=== PATIENT | female | born 1990 | race Caucasian/White ===

== ENCOUNTER 2020-10-07 11:27 | Outpatient (REF) | payer MEDICAID, SELFPAY | END 2020-10-07 11:28 | disposition home or self-care (01) | LOC: HO.LAB 11:27 | PROVIDERS: Visit Provider Internal Medicine | DX: Z20.822 Contact with and (suspected) exposure to COVID-19 (principal) | CPT/HCPCS: 36415; C9803; U0003; U0005 ==

== ENCOUNTER 2020-10-10 16:47 | Emergency (ER) | payer MEDICAID, SELFPAY ==
--- NOTE | ~2020-10-10 | XR_ITS ---
EXAMINATION: XR CHEST CLINICAL INFORMATION: Covid positive. Evaluate for pneumonia. COMPARISON: None TECHNIQUE: Frontal view of the chest was obtained. FINDINGS: No significant abnormality is noted involving the heart, lungs, mediastinum, bony thorax or soft tissues. XR/XR chest 1V IMPRESSION: Unremarkable examination. No evidence of pneumonia.
[2020-10-10 17:08] VITALS: BP 144/95; PULSE 110; RESP 18; TEMP 37.6; O2SAT 99; BMI 27.8
[2020-10-10 17:46] LABS: COVID-19 Test Positive (Negative)
[2020-10-10 19:03] VITALS: BP 142/102; PULSE 88; RESP 18; TEMP 36.8; O2SAT 100
--- NOTE | 2020-10-10 19:17 | ED_ITS ---
HPI - URI/Sore Throat General Chief Complaint: Upper Respiratory Symptoms Stated Complaint: Covid symptoms Time Seen by Provider: 10/10/20 19:04 Source: patient Mode of arrival: ambulatory Limitations: no limitations History of Present Illness HPI Narrative: 30-year-old female here with complaints of chills, cough, headache, chest wall pain x4 days. Aunt at home is COVID positive 5 days ago. No shortness of breath, fevers, chills, leg swelling or pain Related Data Previous Rx's Medication Instructions Recorded benzonatate [Tessalon Perles] 100 mg PO TID PRN #10 cap 10/10/20 ibuprofen 600 mg PO Q8H PRN #20 tab 10/10/20 Allergies Allergy/AdvReac Type Severity Reaction Status Date / Time No Known Allergies Allergy Verified 10/10/20 19:15 Review of Systems Review of Systems: Yes all other systems are reviewed and are negative Constitutional: Constitutional: Reports no additional constitutional complaints, Reports body ache(s), Denies chills, Denies fever(s), Reports headache(s) and Denies weakness Eyes: Eyes: Reports no additional eye complaints and Denies change in vision ENT: Reports system reviewed and no additional complaints, except as documented, Denies dizziness, Reports headache(s), Denies nasal congestion, Denies nasal discharge and Denies neck pain Cardiovascular: Cardiovascular: Reports no additional cardiovascular complaints, Reports chest pain, Denies leg edema and Denies dyspnea Respiratory: Respiratory: Reports no additional respiratory complaints, Reports cough and Denies dyspnea Gastrointestinal: Gastrointestinal: Reports no additional gastrointestinal complaints, Denies abdominal pain, Denies diarrhea, Denies nausea and Denies vomiting Genitourinary: Genitourinary: Reports no additional female genitourinary complaints and Denies urinary incontinence Musculoskeletal: Musculoskeletal: Reports no additional musculoskeletal complaints, Denies back pain, Denies arthralgias, Denies joint swelling, Denies neck pain, Denies numbness and Denies tingling Integumentary/Breasts: Skin/Breast: Reports system reviewed and no additional complaints, except as docu and Denies rash Neurologic: Reports system reviewed and no additional complaints, except as documented, Denies Abnormal speech present, Denies dizziness, Reports headache(s), Denies numbness, Denies tingling and Denies weakness FORMERLY [facility], [facility] Past Medical History Attestation statement: The following information was validated with the patient. Source: old records reviewed and nursing notes reviewed Social History Social History Advance Directives: No Advance Directives Information Provided: No Physical Exam Vital Signs: Vital Signs: Last Vital Signs Temp 98.3 F 10/10/20 19:03 Pulse 88 10/10/20 19:03 Resp 18 10/10/20 19:03 BP 142/102 H 10/10/20 19:03 Pulse Ox 100 10/10/20 19:03 Body Mass Index 27.8 Const: General: cooperative, healthy appearing, comfortable and no acute dist ress Orientation/consciousness: patient oriented x3 Limitations: no limitations HENMT: Head: Yes normal to inspection Ears: hearing grossly normal bilaterally General nose exam: Normal external nose present Face and sinus: Yes normal facial exam Mouth: Normal oral and palatal mucosa present Throat: Yes posterior oropharynx normal Eyes: General: appearance normal, both eyes and all related structures Pupils: Equal, round and reactive pupils present Neck: Neck: Yes normal visual inspection Chest: Chest palpation & inspection: normal inspection of the chest Resp: Effort & Inspection: normal respiratory effort Auscultation: clear to auscultation bilaterally Cardio: Rate: regular rate Rhythm: regular rhythm Peripheral pulses: Peripheral pulses 2+ throughout GI: Inspection: Yes normal to inspection Palpation (GI): Soft to palpation and nontender Auscultation: normal bowel sounds Back/Spine/Pelvis: Thoracic/Lumbar Spine: thoracic and lumbar spine normal to inspection Skin: General skin exam: no rashes or lesions noted Neuro: General: patient oriented x3, no focal motor deficits and normal sensation to monofilament Cranial nerves: Yes Equal, round and reactive pupils present Cognition (Neuro): normal cognition Speech: No Abnormal speech present Gait exam (Neuro): Normal gait present Motor exam (neuro): 5/5 motor strength present throughout Extrem: General: Yes normal to inspection Course Course Course Narrative: Flu-like symptoms x4 days with COVID exposure at home. Will check COVID and chest x-ray 1950-CXR negative. COVID +. Well appearing, stable saturations, lung sounds are clear. Reviewed worrisome signs and symptoms and when to return to the emergency department. Comfortable discharge home. MDM - URI/Sore Throat Medical Records Attestation: I reviewed the patient's medical records. Lab Data Attestation: I reviewed the patient's lab results. Labs: Lab Results 10/10/20 Range/Units 17:06 COVID-19 (ROSALIE) Positive A (Negative) COVID-19 Clin Com See Note Imaging Data Chest x-ray: Attestation: I personally reviewed and interpreted this imaging study as follows: Radiologist's impression: EXAMINATION: XR CHEST CLINICAL INFORMATION: Covid positive. Evaluate for pneumonia. COMPARISON: None TECHNIQUE: Frontal view of the chest was obtained. FINDINGS: No significant abnormality is noted involving the heart, lungs, mediastinum, bony thorax or soft tissues. XR/XR chest 1V IMPRESSION: Unremarkable examination. No evidence of pneumonia. Discharge Plan Discharge Clinical Impression: COVID-19 Patient Disposition: Home, Self-Care Instructions: COVID-19 (Coronavirus Disease 2019) (ED) Additional Instructions: Your chest x-ray shows no sign of pneumonia Your COVID test is positive. Per CDC requirements you must quarantine for 10 days and her symptoms must be resolved for 24 hours before leaving her quarantine Take Motrin or Tylenol as needed for pain or fever Increase fluids, rest Return here for shortness of breath, chest pain, fever which does not respond to Motrin Tylenol Prescriptions: New benzonatate [Tessalon Perles] 100 mg capsule 100 mg PO TID PRN (Reason: cough) Qty: 10 RF: 0 ibuprofen 600 mg tablet 600 mg PO Q8H PRN (Reason: fever or pain) Qty: 20 RF: 0 Referrals: Physician,None [Primary Care Provider] - 2 days Interventions: ED Discharge Assessment Last Done: 10/10/20 20:07 Discharge Date/Time: 10/10/20 20:07 Print Language: Nicaraguan
== END 2020-10-10 20:07 | disposition home or self-care (01) ==
PROVIDERS: Emergency Provider Internal Medicine
DX: U07.1 COVID-19 (principal)
CPT/HCPCS: 36415; 71045; 87635; 99283

== ENCOUNTER 2021-04-29 15:46 | Outpatient (REF) | payer MEDICAID, SELFPAY | END 2021-04-29 15:47 | disposition home or self-care (01) | LOC: HO.LAB 15:46 | PROVIDERS: PCP Family Medicine; Visit Provider Internal Medicine | DX: Z20.822 Contact with and (suspected) exposure to COVID-19 (principal) | CPT/HCPCS: C9803; U0003; U0005 ==

== ENCOUNTER 2021-06-24 10:33 | Emergency (ER) | payer MEDICAID, SELFPAY ==
[2021-06-24 10:47] VITALS: BP 139/87; PULSE 81; RESP 18; TEMP 36.6; O2SAT 100; BMI 27.8
--- NOTE | 2021-06-24 11:10 | ED_ITS ---
HPI - URI/Sore Throat General Chief Complaint: Upper Respiratory Symptoms Stated Complaint: Cough/sore throat Time Seen by Provider: 06/24/21 11:09 Source: patient Mode of arrival: ambulatory Limitations: no limitations History of Present Illness HPI Narrative: 31-year-old female with history of COVID-19 back in September of 2020 presents to the ER with 3 days of dry cough and sore throat. She reports her biggest complaint is the sore throat. She states it hurts to eat or drink but she has been tolerating plenty of oral fluids. She denies any change in her voice or difficulty handling secretions. She has had no fever or chills. No known sick contacts. She has no shortness of breath or chest pain. MD elicited complaint: cough and sore throat Onset (ago): day(s) (3) Consistency: constant Description of mucous: clear Able to tolerate fluids by mouth: Yes Exacerbating factors: swallowing Relieving factors: nothing Associated symptoms: nasal congestion, sore throat and cough Treatments prior to arrival: none Related Data Previous Rx's Medication Instructions Recorded benzonatate 100 mg capsule 100 mg PO TID PRN #10 cap 10/10/20 (Tessalon Steven) ibuprofen 600 mg tablet 600 mg PO Q8H PRN #20 tab 10/10/20 amoxicillin 250 mg/5 mL oral 500 mg (10 mL) PO BID 10 Days #200 06/24/21 suspension ml Allergies Allergy/AdvReac Type Severity Reaction Status Date / Time No Known Allergies Allergy Verified 10/10/20 19:15 Review of Systems Review of Systems: Constitutional: No Fever, No Chills ENT/Mouth: + sore throat, No Rhinorrhea, + Swallowing Difficulty Cardiovascular: No Chest Pain, No SOB, No Orthopnea, No Edema Respiratory: +Cough, No Sputum, No Wheezing, No dyspnea Gastrointestinal: No Nausea, No Vomiting, No abdominal Pain Musculoskeletal: No joint pain, No Myalgias Skin: No Skin Lesions, No rash Neuro: No Weakness, No Numbness, No Dizziness, + Headache Psych: No Anxiety/Panic, No Depression Heme/Lymph: No Bruising, No Lymphadenopathy PMFSH Past Medical History Medical History (Updated 06/24/21 @ 12:20 by RONALD Conde) No known health problems Social History Social History Advance Directives: No Advance Directives Information Provided: Yes Patient : No Physical Exam Vital Signs: Vital Signs: Last Vital Signs Temp 98.6 F 06/24/21 11:41 Pulse 104 H 06/24/21 11:41 Resp 19 06/24/21 11:41 BP 133/87 06/24/21 11:41 Pulse Ox 100 06/24/21 11:42 BMI result Body Mass Index 27.8 Appearance: Alert. Oriented X3. No acute distress. Eyes: Pupils equal, round and reactive to light. ENT: Pharynx with moist mucus membranes. Tonsils are erythematous and enlarged bilaterally without exudate. Uvula midline. Handling secretions normally. Bilateral tympanic membranes are normal in appearance. Neck: Normal inspection. Neck supple. Submandibular lymphadenopathy noted. CVS: Normal heart rate and rhythm. Pulses normal. Respiratory: No respiratory distress. Breath sounds normal. Skin: Skin warm and dry. Normal skin color. Normal skin turgor. No rashes. Extremities: Normal inspection, normal range of motion. Neuro: Oriented X 3. Grossly normal, nonfocal Course Course Course Narrative: 31-year-old female presenting with sore throat and dry cough for the last 3 days. She had COVID back in September. On exam her tonsils are significantly swollen and erythematous. Will empirically treat for strep pharyngitis. There is no evidence of peritonsillar abscess or retropharyngeal abscess. Viral PCR has been sent although less likely. Reevaluation(s) Reevaluation #1: Viral PCR is negative. She was given Toradol for throat pain. Will prescribe oral amoxicillin liquid given her throat pain and reported difficulty swallowing large pills. She is stable for discharge home with supportive care and encourage follow-up with her primary care doctor. Patient expressed understanding and was given a warning signs to come back to the ER. MDM - URI/Sore Throat Lab Data Labs: Lab Results 06/24/21 06/24/21 Range/Units 10:57 11:01 Influenza Type A (PCR) NEGATIVE (Negative) Influenza Type B (PCR) NEGATIVE (Negative) RSV RNA Qual (PCR) NEGATIVE (Negative) SARS-CoV-2 RNA (RT-PCR) NEGATIVE (Negative) S. pyogenes GrpA AMARA Negative (Negative) Critical Care Time Critical Care Time Critical Care Time: No Discharge Plan Discharge Clinical Impression: Pharyngitis Qualifiers: Pharyngitis/tonsillitis etiology: unspecified etiology Qualified Code(s): J02.9 - Acute pharyngitis, unspecified Patient Disposition: Home, Self-Care Instructions: Pharyngitis (ED) Additional Instructions: You were negative for COVID-19, Influenza and RSV. Take the prescribed antibiotic as directed, complete the entire course. Recommend warm saltwater gargles over times per day to help with her sore throat. Recommend [id number] Chloraseptic spray or Cepacol lozenges to help numb the back your throat and help with pain. Take Motrin and/or Tylenol as needed for pain. Follow up with your doctor as needed. If you develop new or worsening symptoms call 911 or come back to the ER for further evaluation. Result? negativo para COVID-19, Influenza y RSV. Ingalls el antibi?katie recetado seg?n las indicaciones, complete todo el ciclo. Recomiende hacer g?rgaras con agua salada tibia varias veces al d?a para ayudar con el dolor de garganta. Recomiende el aerosol cloras?ptico de venta sophie o las pastillas de Cepacol para ayudar a adormecer la parte posterior de la garganta y aliviar el dolor. Ingalls Motrin y / o Tylenol seg?n sea necesario para el dolor. Thi un seguimiento con edwards m?dico seg?n sea necesario. Si presenta s?ntomas nuevos o que empeoran, llame al 911 o regrese a la linh de emergencias para ravinder evaluaci?n adicional. Prescriptions: New amoxicillin 250 mg/5 mL suspension for reconstitution 500 mg PO BID 10 Days Qty: 200 RF: 0 No Action benzonatate [Tessalon Perles] 100 mg capsule 100 mg PO TID PRN (Reason: cough) Qty: 10 RF: 0 ibuprofen 600 mg tablet 600 mg PO Q8H PRN (Reason: fever or pain) Qty: 20 RF: 0
[2021-06-24 11:30] LABS: Strep A Nucleic Acid Negative (Negative)
[2021-06-24 11:41] VITALS: BP 133/87; PULSE 104; RESP 19; TEMP 37; O2SAT 100
[2021-06-24 11:42] VITALS: O2SAT 100
[2021-06-24 11:51] LABS: Influenza A PCR NEGATIVE (Negative); Influenza B PCR NEGATIVE (Negative); Resp Syncy Virus RNA Qual PCR NEGATIVE (Negative); SARS COV2 PCR INHOUSE NEGATIVE (Negative)
[2021-06-24] MEDS: Ketorolac Tromethamine 30 MG/ML VIAL IM (11:51)
[2021-06-24] MEDS: Lidocaine HCl Viscous 2 % 15 ML SOLUTION MUCOUS MEM (11:51)
[2021-06-24 12:25] VITALS: RESP 18
== END 2021-06-24 12:27 | disposition home or self-care (01) ==
PROVIDERS: Physician Assistant Medical; Emergency Provider Emergency Medicine Emergency Medical Services; PCP Family Medicine
DX: J02.9 Acute pharyngitis, unspecified (principal); R05.9 Cough, unspecified; Z20.822 Contact with and (suspected) exposure to COVID-19; Z79.899 Other long term (current) drug therapy
CPT/HCPCS: 0241U; 36415; 87651; 96372; 99284; J1885

== ENCOUNTER 2021-07-03 12:46 | Outpatient (REF) | payer MEDICAID, SELFPAY | END 2021-07-03 12:47 | disposition home or self-care (01) | LOC: HO.HOSX 12:46 | PROVIDERS: Visit Provider Physician Assistant | DX: Z13.89 Encounter for screening for other disorder (principal) ==

== ENCOUNTER 2021-07-16 09:19 | Outpatient (REF) | payer MEDICAID, SELFPAY ==
--- NOTE | 2021-07-16 09:23 | EMG_ITS ---
This is a 31-year-old woman with a 5-month history of bilateral upper extremity pain and numbness. PHYSICAL EXAMINATION: NEUROLOGICAL: She is alert and oriented with normal intellectual functions. Cranial nerves II through XII are normal. No Tinel or Phalen sign. IMPRESSION: Carpal tunnel syndrome. Nerve conduction EMG study: Early carpal tunnel syndrome bilaterally, slightly worse on the right. Normal EMG of the left C5-T1 innervated muscles. MD KALIA Ocasio/JOSH / [id number]
== END 2021-07-16 09:20 | disposition home or self-care (01) ==
LOC: HO.NEURO 09:19
PROVIDERS: Visit Provider Family Medicine
DX: M79.641 Pain in right hand (principal)
CPT/HCPCS: 95885; 95913

== ENCOUNTER 2021-10-11 16:53 | Emergency (ER) | payer MEDICAID, SELFPAY ==
[2021-10-11 17:01] VITALS: BP 172/113; PULSE 90; RESP 16; TEMP 36.3; O2SAT 100; BMI 28.7
--- NOTE | 2021-10-11 17:58 | ED.GENADULT ---
HPI - General Adult General Chief complaint: General Medical Stated complaint: throat pain/swollen Time Seen by Provider: 10/11/21 17:18 Source: patient Mode of arrival: ambulatory Limitations: no limitations History of Present Illness HPI narrative: Patient status post tonsillectomy 5 days ago on oxycodone and ibuprofen complaining of increased pain in the throat unable to drink or swallow no fever no chills Related Data Previous Rx's Medication Instructions Recorded benzonatate 100 mg capsule 100 mg PO TID PRN #10 cap 10/10/20 (Tessalon Perles) ibuprofen 600 mg tablet 600 mg PO Q8H PRN #20 tab 10/10/20 amoxicillin 250 mg/5 mL oral 500 mg (10 mL) PO BID 10 Days #200 06/24/21 suspension ml lidocaine HCl 2 % mucosal solution 1 appl MUCOUS MEMBRANE QID PRN 10/11/21 (Lidocaine Viscous) #100 ml Allergies Allergy/AdvReac Type Severity Reaction Status Date / Time No Known Allergies Allergy Verified 10/11/21 17:01 Review of Systems Review of Systems: Yes all other systems are reviewed and are negative PMFSH Past Medical History Medical History No known health problems No known health problems Social History Social History Advance Directives: No Advance Directives Information Provided: No Physical Exam ED Vital Signs: Vital Signs - 24 hr 10/11/21 17:01 Temperature 97.4 F Pulse Rate 90 Respiratory Rate 16 Blood Pressure 172/113 H Pulse Oximetry 100 BMI result Body Mass Index 28.7 Appearance: Alert. Oriented X3. in mild distress. ENT: Post tonsillectomy changes Oral Mucosa moist Neck: Normal inspection. Neck supple. CVS: Normal heart rate and rhythm. Pulses normal. Respiratory: No respiratory distress. Equal air entry bilateral, Abdomen: Soft and nontender. Bowel sounds are present, Skin: Skin warm and dry. Normal skin color. Normal skin turgor. Extremities: No lower extremity edema. No calf tenderness Neuro: Oriented X 3. Discharge Plan Discharge Clinical Impression: Pain in throat Patient Disposition: Home, Self-Care Instructions: Adenoidectomy (DC) Additional Instructions: Swish and spit lidocaine viscous every 6 hours as needed for pain relief Prescriptions: New lidocaine HCl [Lidocaine Viscous] 2 % solution 1 appl mucous membrane QID PRN (Reason: pain) Qty: 100 0RF Rx Instructions: Use 5 mL every 6 hours as needed for throat pain No Action benzonatate [Tessalon Perles] 100 mg capsule 100 mg PO TID PRN (Reason: cough) Qty: 10 0RF ibuprofen 600 mg tablet 600 mg PO Q8H PRN (Reason: fever or pain) Qty: 20 0RF amoxicillin 250 mg/5 mL suspension for reconstitution 500 mg PO BID 10 Days Qty: 200 0RF Interventions: ED Discharge Assessment Last Done: 10/11/21 19:34 Discharge Date/Time: 10/11/21 19:35
[2021-10-11] MEDS: Lidocaine HCl Viscous 2 % 15 ML SOLUTION MUCOUS MEM (18:37)
== END 2021-10-11 19:35 | disposition home or self-care (01) ==
PROVIDERS: Emergency Provider Internal Medicine; PCP Family Medicine
DX: J02.9 Acute pharyngitis, unspecified (principal)
CPT/HCPCS: 99283

== ENCOUNTER 2022-06-18 20:22 | Emergency (ER) | payer MEDICAID, SELFPAY ==
--- NOTE | 2022-06-18 | ECG_ITS ---
Test Reason : ABD MOE CHEST PAIN Blood Pressure : / mmHG Vent. Rate : 077 BPM Atrial Rate : 077 BPM P-R Int : 116 ms QRS Dur : 076 ms QT Int : 390 ms P-R-T Axes : 043 015 033 degrees QTc Int : 441 ms Normal sinus rhythm Normal ECG No previous ECGs available Referred By: Generic ED Physician Electronically Signed By:Dev Valencia
[2022-06-18 21:55] VITALS: BP 158/108; PULSE 79; RESP 20; TEMP 37.1; O2SAT 100; BMI 27.8
[2022-06-18 22:23] LABS: MANUAL DIFF FLAG NO
[2022-06-18 22:24] LABS: Basophils Absolute Auto 0.1 X10*3/uL (0.0-0.2); Basophils Percent Auto 0.4 % (0-2); Eosinophils Absolute Auto 0.2 X10*3/uL (0.0-0.4); Eosinophils Percent Auto 1.8 % (0-4); Hematocrit 40.8 % (37.0-47.0); Hemoglobin 13.2 g/dl (12.0-16.0); Imm Gran Abs Auto 0.07 X10*3/uL (0.00-0.03); Imm Gran Pct Auto 0.6 % (0.0-0.4); Lymphocytes Absolute Auto 3.4 X10*3/uL (1.2-4.9); Lymphocytes Percent Auto 27.8 % (20-40); Mean Corpuscular HGB Conc 32.4 g/dl (31.0-35.0); Mean Corpuscular Hemoglobin 26.6 pg (27.0-33.0); Mean Corpuscular Volume 82.3 fL (80.0-98.0); Mean Platelet Volume 8.8 fL (9.4-12.3); Monocytes Absolute Auto 0.8 X10*3/uL (0.1-1.2); Monocytes Percent Auto 6.8 % (2-11); Neutrophils Absolute Auto 7.6 x10*3/uL (2.0-8.3); Neutrophils Percent Auto 62.6 % (45-73); Platelet Count 352 X10*3/uL (160-400); Red Blood Count 4.96 X10*6/uL (4.20-5.50); Red Cell Distribution Width 13.2 % (11.0-16.0); White Blood Count 12.2 X10*3/uL (4.8-10.8)
[2022-06-18 22:44] LABS: Alanine Aminotransferase 26 U/L (0-31); Albumin Level 4.6 g/dL (3.5-5.0); Alkaline Phosphatase 84 U/L (39-117); Anion Gap 18 (12-20); Aspartate Amino Transferase 27 U/L (5-31); Bilirubin Total 1.1 mg/dL (0.0-1.0); Blood Urea Nitrogen 11 mg/dL (9-16); Calcium 9.9 mg/dL (8.4-10.2); Carbon Dioxide 23 mmol/L (22-29); Chloride 105 mmol/L (96-108); Creatinine Clr Calc Pharmacy 98.6; Estimated Glomerular Filt Rate > 60; Glucose Random 108 mg/dL (60-115); Lipase 30 U/L (8-78); Potassium 4.1 mmol/L (3.3-5.1); Sodium 142 mmol/L (135-145)
[2022-06-18 22:45] LABS: Troponin-I High Sensitivity < 3.5 ng/L (<3.5-17.0)
--- NOTE | 2022-06-18 23:25 | ED.ABDPAIN ---
HPI - Abdominal Pain General Chief Complaint: Abdominal Pain Stated Complaint: abd pain,nausea Time Seen by Provider: 06/18/22 23:20 Source: patient Mode of arrival: ambulatory Limitations: no limitations History of Present Illness HPI narrative: Patient with History of hypertension not taking any medication for last 3 years was feeling okay otherwise earlier today around 19:00 noticed epigastric pain followed by 4 vomiting initial to vomiting were clear last vomiting had some dark-colored blood mixed vomitus patient now complaining of epigastric pain never had similar complaints in the past patient does not smoke does not take any NSAIDs. No history of ulcer no history of pancreatitis no alcohol use. No headache no kidney problems blood pressure on arrival was 158/108 repeat blood pressure 133/91 Related Data Previous Rx's Medication Instructions Recorded benzonatate 100 mg capsule 100 mg PO TID PRN cough #10 caps 10/10/20 (Tessalon Perles) ibuprofen 600 mg tablet 600 mg PO Q8H PRN fever or pain 10/10/20 #20 tabs amoxicillin 250 mg/5 mL oral 500 mg (10 mL) PO BID 10 days #200 06/24/21 suspension mL lidocaine HCl 2 % mucosal solution 1 appl mucous membrane QID PRN 10/11/21 (Lidocaine Viscous) pain #100 mL amlodipine 5 mg tablet 5 mg PO DAILY #30 tabs 06/19/22 pantoprazole 40 mg tablet,delayed 40 mg PO DAILY #30 tabs 06/19/22 release (Protonix) sucralfate 1 gram tablet 1 g PO TID #90 tabs 06/19/22 Allergies Allergy/AdvReac Type Severity Reaction Status Date / Time No Known Allergies Allergy Verified 06/18/22 21:57 Review of Systems Review of Systems Yes all other systems are reviewed and are negative PMFSH Past Medical History Medical History No known health problems No known health problems Social History Social History Advance Directives: No Advance Directives Information Provided: Yes Physical Exam ED Vital Signs: Vital Signs - 24 hr 06/18/22 21:55 06/18/22 23:28 06/19/22 00:35 Temperature 98.8 F 98.4 F 97.9 F Pulse Rate 79 85 81 Respiratory Rate 20 14 18 Blood Pressure 158/108 H 133/91 H 171/109 H Pulse Oximetry 100 100 100 Oxygen Delivery Method Room Air Room Air Room Air 06/19/22 02:37 Temperature 98.3 F Pulse Rate 74 Respiratory Rate 16 Blood Pressure 145/102 H Pulse Oximetry 99 Oxygen Delivery Method Room Air BMI result Body Mass Index 27.8 Appearance: Alert. Oriented X3. No acute distress. Eyes: PERRLA, No Nystagmus ENT: Pharynx normal. Oral Mucosa moist Neck: Normal inspection. Neck supple. CVS: Normal heart rate and rhythm. Pulses normal. Respiratory: No respiratory distress. Equal air entry bilateral, no wheezing/rales/rhonchi Abdomen: Soft tenderness in the epigastric area no rebound tenderness or guarding. Bowel sounds are present, no mass palpable, no CVA tenderness Skin: Skin warm and dry. Normal skin color. Normal skin turgor. Extremities: No lower extremity edema. No calf tenderness Neuro: Oriented X 3. Medications Administered Discontinued Medications Generic Name Dose Route Start Last Admin Trade Name Freq PRN Reason Stop Dose Admin Al Hydroxide/Mg Hydroxide 30 ml 06/18/22 23:38 06/19/22 00:10 Magnesium Hydrox/Alum Hydrox 30 Ml Oral.Susp PO 06/18/22 23:39 30 ml ONCE ONE Administration Amlodipine Besylate 5 mg 06/18/22 23:53 06/19/22 00:10 Amlodipine Besylate 5 Mg Tablet PO 06/18/22 23:54 5 mg ONCE ONE Administration Protocol Sodium Chloride 1,000 mls @ 999 mls/hr 06/18/22 23:40 06/19/22 01:45 Ns IV 06/19/22 00:40 Infused .Q1H1M ONE Infusion Lidocaine HCl 15 ml 06/18/22 23:40 06/19/22 00:11 Lidocaine Hcl Viscous 2 % 15 Ml Solution MUCOUS MEM 06/18/22 23:41 15 ml ONCE ONE Administration Omeprazole 40 mg 06/18/22 23:52 06/19/22 00:10 Omeprazole 40 Mg Capsule.Dr PO 06/18/22 23:53 40 mg ONCE ONE Administration Ondansetron HCl 4 mg 06/18/22 23:52 06/19/22 00:10 Ondansetron Odt 4 Mg Tab.Rapdis TRANSLINGU 06/18/22 23:53 4 mg ONCE ONE Administration MDM - Abdominal Pain MDM Narrative Medical decision making narrative: Clinically patient has gastritis likely the bleeding from the small ruptured blood vessel will treat her with PPI and Maalox incidental notice patient has hypertension which was diagnosed during and patient not compliant with the medication will start patient on amlodipine 5 mg at this time is no end organ damage finding from hypertension Differential Diagnosis Differential diagnosis: Likely abdominal pain and gastritis Lab Data Attestation: I reviewed the patient's lab results. Result diagrams: 06/18/22 22:18 06/18/22 22:18 Labs: Lab Results 06/18/22 06/18/22 06/18/22 Range/Units 22:18 22:18 22:18 WBC 12.2 H (4.8-10.8) X10*3/uL RBC 4.96 (4.20-5.50) X10*6/uL Hgb 13.2 (12.0-16.0) g/dl Hct 40.8 (37.0-47.0) % MCV 82.3 (80.0-98.0) fL MCH 26.6 L (27.0-33.0) pg MCHC 32.4 (31.0-35.0) g/dl RDW 13.2 (11.0-16.0) % Plt Count 352 (160-400) X10*3/uL MPV 8.8 L (9.4-12.3) fL Immature Gran % (Auto) 0.6 H (0.0-0.4) % Neut % (Auto) 62.6 (45-73) % Lymph % (Auto) 27.8 (20-40) % [place] % (Auto) 6.8 (2-11) % Eos % (Auto) 1.8 (0-4) % Baso % (Auto) 0.4 (0-2) % Lymph # (Auto) 3.4 (1.2-4.9) X10*3/uL [place] # (Auto) 0.8 (0.1-1.2) X10*3/uL Eos # (Auto) 0.2 (0.0-0.4) X10*3/uL Baso # (Auto) 0.1 (0.0-0.2) X10*3/uL Abs Immat Gran (auto) 0.07 H (0.00-0.03) X10*3/uL Absolute Neuts (auto) 7.6 (2.0-8.3) x10*3/uL Absolute Nucleated RBC 0.000 (0.0-0.012) X10*3/uL Nucleated RBC % (auto) 0.0 (0.0-0.2) /100WBC Sodium 142 (135-145) mmol/L Potassium 4.1 (3.3-5.1) mmol/L Chloride 105 (96-108) mmol/L Carbon Dioxide 23 (22-29) mmol/L Anion Gap 18 (12-20) BUN 11 (9-16) mg/dL Creatinine 0.76 (0.5-1.4) mg/dL Estim Creat Clear Calc 98.6 Estimated GFR > 60 Random Glucose 108 (60-115) mg/dL Calcium 9.9 (8.4-10.2) mg/dL Total Bilirubin 1.1 H (0.0-1.0) mg/dL AST 27 (5-31) U/L ALT 26 (0-31) U/L Alkaline Phosphatase 84 (39-117) U/L Troponin I High Sens < 3.5 (<3.5-17.0) ng/L Total Protein 8.0 (6.5-8.0) g/dL Albumin 4.6 (3.5-5.0) g/dL Lipase 30 (8-78) U/L Urine Color Urine Appearance Urine pH (5.0-9.0) Ur Specific [place] (1.005-1.025) Urine Protein (Neg-Trace) mg/dL Urine Glucose (UA) (Negative) mg/dL Urine Ketones (Negative) mg/dL Urine Blood (Negative) Urine Nitrite (Negative) Ur Leukocyte Esterase (Negative) Urine Test (NEGATIVE) 06/19/22 06/19/22 Range/Units 00:42 00:42 WBC (4.8-10.8) X10*3/uL RBC (4.20-5.50) X10*6/uL Hgb (12.0-16.0) g/dl Hct (37.0-47.0) % MCV (80.0-98.0) fL MCH (27.0-33.0) pg MCHC (31.0-35.0) g/dl RDW (11.0-16.0) % Plt Count (160-400) X10*3/uL MPV (9.4-12.3) fL Immature Gran % (Auto) (0.0-0.4) % Neut % (Auto) (45-73) % Lymph % (Auto) (20-40) % [place] % (Auto) (2-11) % Eos % (Auto) (0-4) % Baso % (Auto) (0-2) % Lymph # (Auto) (1.2-4.9) X10*3/uL [place] # (Auto) (0.1-1.2) X10*3/uL Eos # (Auto) (0.0-0.4) X10*3/uL Baso # (Auto) (0.0-0.2) X10*3/uL Abs Immat Gran (auto) (0.00-0.03) X10*3/uL Absolute Neuts (auto) (2.0-8.3) x10*3/uL Absolute Nucleated RBC (0.0-0.012) X10*3/uL Nucleated RBC % (auto) (0.0-0.2) /100WBC Sodium (135-145) mmol/L Potassium (3.3-5.1) mmol/L Chloride (96-108) mmol/L Carbon Dioxide (22-29) mmol/L Anion Gap (12-20) BUN (9-16) mg/dL Creatinine (0.5-1.4) mg/dL Estim Creat Clear Calc Estimated GFR Random Glucose (60-115) mg/dL Calcium (8.4-10.2) mg/dL Total Bilirubin (0.0-1.0) mg/dL AST (5-31) U/L ALT (0-31) U/L Alkaline Phosphatase (39-117) U/L Troponin I High Sens (<3.5-17.0) ng/L Total Protein (6.5-8.0) g/dL Albumin (3.5-5.0) g/dL Lipase (8-78) U/L Urine Color Yellow Urine Appearance Clear Urine pH 7.5 (5.0-9.0) Ur Specific [place] 1.015 (1.005-1.025) Urine Protein Negative (Neg-Trace) mg/dL Urine Glucose (UA) Negative (Negative) mg/dL Urine Ketones Negative (Negative) mg/dL Urine Blood Negative (Negative) Urine Nitrite Negative (Negative) Ur Leukocyte Esterase Negative (Negative) Urine Test NEGATIVE (NEGATIVE) Discharge Plan Discharge Clinical Impression: Acute gastritis, Hypertension Patient Disposition: Home, Self-Care Instructions: Gastritis (ED), Chronic Hypertension (ED) Additional Instructions: Drink plenty of fluids Take blood pressure medication daily as prescribed Take Protonix and sucralfate daily Avoid fried food Your normal blood pressure should be less than 130/85 follow with PCP Beber mucho l?quido [place] medicamentos para la presi?n arterial diariamente seg?n lo prescrito [place] Protonix y sucralfato diariamente [place]ma la comida frita [place] presi?n arterial normal debe ser inferior a 130/85. Siga con PCP. Prescriptions: New pantoprazole [Protonix] 40 mg tablet,delayed release (DR/EC) 40 mg PO DAILY Qty: 30 0RF sucralfate 1 gram tablet 1 g PO TID Qty: 90 0RF amlodipine 5 mg tablet 5 mg PO DAILY Qty: 30 3RF No Action benzonatate [Tessalon Perles] 100 mg capsule 100 mg PO TID PRN (Reason: cough) Qty: 10 0RF ibuprofen 600 mg tablet 600 mg PO Q8H PRN (Reason: fever or pain) Qty: 20 0RF amoxicillin 250 mg/5 mL suspension for reconstitution 500 mg PO BID 10 Days Qty: 200 0RF lidocaine HCl [Lidocaine Viscous] 2 % solution 1 appl mucous membrane QID PRN (Reason: pain) Qty: 100 0RF Rx Instructions: Use 5 mL every 6 hours as needed for throat pain Stand Alone Forms: Work/School Release Interventions: ED Discharge Assessment Last Done: 06/19/22 03:13 Discharge Date/Time: 06/19/22 03:17 Print Language: Wolof
[2022-06-18 23:28] VITALS: BP 133/91; PULSE 85; RESP 14; TEMP 36.9; O2SAT 100
[2022-06-19] MEDS: Ondansetron ODT 4 MG TAB.RAPDIS TRANSLINGU (00:10)
[2022-06-19] MEDS: Magnesium Hydrox/Alum Hydrox 30 ML ORAL.SUSP PO (00:10)
[2022-06-19] MEDS: amLODIPine Besylate 5 MG TABLET PO (00:10)
[2022-06-19] MEDS: Omeprazole 40 MG CAPSULE.DR PO (00:10)
[2022-06-19] MEDS: 0.9 % Sodium Chloride 1,000 ML 999 ML IV (00:11)
[2022-06-19] MEDS: Lidocaine HCl Viscous 2 % 15 ML SOLUTION MUCOUS MEM (00:11)
[2022-06-19 00:35] VITALS: BP 171/109; PULSE 81; RESP 18; TEMP 36.6; O2SAT 100
[2022-06-19 00:50] LABS: Appearance Urine Clear; Color Urine Yellow; Glucose Urine UA Negative (Negative); Leukocyte Esterase Urine Negative (Negative); Nitrite Urine Negative (Negative); PH 7.5 (5.0-9.0); Specific Gravity - Urine 1.015 (1.005-1.025); Urine Blood Negative (Negative); Urine Ketones Negative (Negative); Urine Protein Negative (Neg-Trace)
[2022-06-19 02:09] LABS: UPreg QC Valid YES; Urine Pregnancy NEGATIVE (NEGATIVE)
[2022-06-19 02:37] VITALS: BP 145/102; PULSE 74; RESP 16; TEMP 36.8; O2SAT 99
== END 2022-06-19 03:17 | disposition home or self-care (01) ==
PROVIDERS: Emergency Provider Internal Medicine; PCP Family Medicine
DX: K29.00 Acute gastritis without bleeding (principal); I10 Essential (primary) hypertension
CPT/HCPCS: 36415; 80053; 81003; 81025; 83690; 84484; 85025; 93005; 96360; 99284; 99285

== ENCOUNTER 2022-10-06 11:40 | Emergency (ER) | payer MEDICAID, SELFPAY ==
--- NOTE | ~2022-10-06 | US_ITS ---
EXAMINATION: US PELVIS CLINICAL INFORMATION: Irregular vaginal bleeding and 32-year-old female. COMPARISON: None available. TECHNIQUE: Ultrasound of the pelvis is performed using both transabdominal and transvaginal transducers along with Doppler. Transvaginal imaging is performed due to inadequate visualization transabdominally. FINDINGS: UTERUS AND CERVIX The retroverted uterus measures 8 x 4.6 x 5.5 cm ([id number] x AP x transverse dimension). The myometrial echotexture is normal. No evidence of leiomyoma. The cervix is approximately 2.5 cm in length. The endometrium has normal echotexture and measures 0.3 cm AP. No evidence of endometrial polyp or endometrial fluid. ADNEXA: The right ovary is 1.9 x 2.6 x 3.9 cm. The left ovary is 2 x 2.1 x 3.5 cm. There are normal-sized follicles within each ovary. Color Doppler images show presence of arterial venous flow within each ovary. No adnexal masses. FREE FLUID: None detected. US/US pelvic and transvaginal IMPRESSION: * No significant sonographic findings in the pelvis. * No evidence of uterine leiomyoma, endometrial polyp or endometrial fluid. * The ovaries are normal.
[2022-10-06 12:01] VITALS: BP 149/99; PULSE 81; RESP 18; TEMP 36.6; O2SAT 98; BMI 29.2
--- NOTE | 2022-10-06 12:09 | ECG_ITS ---
Test Reason : DIZZINESS Blood Pressure : / mmHG Vent. Rate : 077 BPM Atrial Rate : 077 BPM P-R Int : 120 ms QRS Dur : 078 ms QT Int : 360 ms P-R-T Axes : 042 012 041 degrees QTc Int : 407 ms Normal sinus rhythm Normal ECG When compared with ECG of 18-JUN-2022 22:08, No significant change was found Referred By: Rafael Keller Electronically Signed By:MERCED MAYA MD
--- NOTE | 2022-10-06 12:09 | ED.GENADULT ---
HPI - General Adult General Chief complaint: Abdominal Pain <RONALD Mccann - Last Filed: 10/06/22 12:10> Stated complaint: Abd cramping <RONALD Mccann - Last Filed: 10/06/22 12:10> Time Seen by Provider: 10/06/22 13:49 <RONALD Mccann - Last Filed: 10/06/22 12:10> Source: patient and hourly sign language interpreter <Mary Toro NP - Last Filed: 10/06/22 15:32> Mode of arrival: ambulatory <Mary Toro NP - Last Filed: 10/06/22 15:32> Limitations: language barrier <Mary Toro NP - Last Filed: 10/06/22 15:32> History of Present Illness HPI narrative: 32-year-old female previously healthy here with complaints of 3 weeks of intermittent vaginal bleeding. Patient reports on heavy days she may use approximately 7 pads. On the tooth cutter contact wheel day she may use 3 pads. She may go a day without any bleeding at all. This is normally associated with abdominal cramping. She denies any urinary symptoms, fevers, chills, vomiting or diarrhea. She is sexually active with 1 male partner. She denies any new sexual partners. She does not use condoms. She does have a Nexplanon which was placed 2 years ago. She has not had any menses since having the Nexplanon placed 2 years ago until this bleeding. She does not currently have a physician neonatology. She last saw a physician neonatology 3 years ago. At that time she had a Pap smear which he tells me was abnormal and it was recommended she have a repeat Pap smear in 6 months but she did not follow-up. <Mary Troo NP - Last Filed: 10/06/22 15:32> Related Data Home medications: Previous Rx's Medication Instructions Recorded benzonatate 100 mg capsule 100 mg PO TID PRN cough #10 caps 10/10/20 (Sherrie Harris) ibuprofen 600 mg tablet 600 mg PO Q8H PRN fever or pain 10/10/20 #20 tabs amoxicillin 250 mg/5 mL oral 500 mg (10 mL) PO BID 10 days #200 06/24/21 suspension mL lidocaine HCl 2 % mucosal solution 1 appl mucous membrane QID PRN 10/11/21 (Lidocaine Viscous) pain #100 mL amlodipine 5 mg tablet 5 mg PO DAILY #30 tabs 06/19/22 pantoprazole 40 mg tablet,delayed 40 mg PO DAILY #30 tabs 06/19/22 release (Protonix) sucralfate 1 gram tablet 1 g PO TID #90 tabs 06/19/22 <RONALD Mccann - Last Filed: 10/06/22 12:10> Allergies/adverse reactions: Allergies Allergy/AdvReac Type Severity Reaction Status Date / Time No Known Allergies Allergy Verified 10/06/22 12:00 <RONALD Mccann - Last Filed: 10/06/22 12:10> Review of Systems Review of Systems: Yes all other systems are reviewed and are negative <Mary Toro NP - Last Filed: 10/06/22 15:32> Constitutional: Constitutional: Reports no additional constitutional complaints, Denies body ache(s), Denies chills, Denies fever(s), Denies headache(s) and Denies weakness <Mary Toro NP - Last Filed: 10/06/22 15:32> Eyes: Eyes: Reports no additional eye complaints and Denies change in vision <Mary Toro NP - Last Filed: 10/06/22 15:32> ENT: Reports system reviewed and no additional complaints, except as documented, Denies dizziness, Denies headache(s), Denies nasal congestion, Denies nasal discharge and Denies neck pain <Mary Toro NP - Last Filed: 10/06/22 15:32> Cardiovascular: Cardiovascular: Reports no additional cardiovascular complaints, Denies chest pain, Denies leg edema and Denies dyspnea <Mary Toro NP - Last Filed: 10/06/22 15:32> Respiratory: Respiratory: Reports no additional respiratory complaints, Denies cough and Denies dyspnea <Mary Toro NP - Last Filed: 10/06/22 15:32> Gastrointestinal: Gastrointestinal: Reports no additional gastrointestinal complaints, Reports abdominal pain, Denies diarrhea, Denies nausea and Denies vomiting <Mary Toro NP - Last Filed: 10/06/22 15:32> Genitourinary: Genitourinary: Reports no additional female genitourinary complaints, Reports abnormal vaginal bleeding and Denies urinary incontinence <Mary Toro NP - Last Filed: 10/06/22 15:32> Musculoskeletal: Musculoskeletal: Reports no additional musculoskeletal complaints, Denies back pain, Denies arthralgias, Denies joint swelling, Denies neck pain, Denies numbness and Denies tingling <Mary Toro NP - Last Filed: 10/06/22 15:32> Integumentary/Breasts: Skin/Breast: Reports system reviewed and no additional complaints, except as docu and Denies rash <Mary Toro NP - Last Filed: 10/06/22 15:32> Neurologic: Reports system reviewed and no additional complaints, except as documented, Denies dizziness, Denies headache(s), Denies numbness, Denies tingling and Denies weakness <Mary Toro NP - Last Filed: 10/06/22 15:32> [facility] Past Medical History Attestation statement: The following information was validated with the patient. <Mary Toro NP - Last Filed: 10/06/22 15:32> Source: old records reviewed and nursing notes reviewed <Mary Toro NP - Last Filed: 10/06/22 15:32> Medical History: Medical History No known health problems No known health problems <RONALD Mccann - Last Filed: 10/06/22 12:10> Social History Social History: Social History Alcohol intake: current Alcohol intake frequency: holidays/special occasions only Smoked in Last 30 Days: Yes Use of substances other than those prescribed or required for medical reasons: No Advance Directives: No Advance Directives Information Provided: Yes Patient : Yes <RONALD Mccann - Last Filed: 10/06/22 12:10> Physical Exam ED Vital Signs: Vital Signs - 24 hr 10/06/22 12:01 10/06/22 13:48 Temperature 98 F 98.8 F Pulse Rate 81 71 Respiratory Rate 18 13 Blood Pressure 149/99 H 141/98 H Pulse Oximetry 98 100 Oxygen Delivery Method Room Air Room Air BMI result Body Mass Index 29.2 <Rafael Keller PA - Last Filed: 10/06/22 12:10> Vital Signs - 24 hr 10/06/22 12:01 10/06/22 13:48 Temperature 98 F 98.8 F Pulse Rate 81 71 Respiratory Rate 18 13 Blood Pressure 149/99 H 141/98 H Pulse Oximetry 98 100 Oxygen Delivery Method Room Air Room Air BMI result Body Mass Index 29.2 <Mary Toro NP - Last Filed: 10/06/22 15:32> Const General: cooperative, healthy appearing, comfortable and no acute distress <Mary Toro NP - Last Filed: 10/06/22 15:32> Orientation/consciousness: patient oriented x3 <Mary Toro NP - Last Filed: 10/06/22 15:32> Limitations: no limitations <Mary Toro NP - Last Filed: 10/06/22 15:32> HENMT Head: Yes normal to inspection <Mary Toro NP - Last Filed: 10/06/22 15:32> Ears: hearing grossly normal bilaterally <Mary Toro NP - Last Filed: 10/06/22 15:32> Eyes General: appearance normal, both eyes and all related structures <Mary Toro NP - Last Filed: 10/06/22 15:32> Pupils: Equal, round and reactive pupils present <Mary Toro NP - Last Filed: 10/06/22 15:32> Neck Neck: Yes normal visual inspection, Yes full ROM, Yes no lymphadenopathy and Yes no meningeal signs <Mary Toro NP - Last Filed: 10/06/22 15:32> Chest Chest palpation & inspection: normal inspection of the chest <Mary Toro NP - Last Filed: 10/06/22 15:32> Resp Effort & Inspection: normal respiratory effort <Mary Toro NP - Last Filed: 10/06/22 15:32> Auscultation: clear to auscultation bilaterally <Mary Toro DIRECTOR OF DATABASE MARKETING - Last Filed: 10/06/22 15:32> Cardio Rate: regular rate <Mary Toro DIRECTOR OF DATABASE MARKETING - Last Filed: 10/06/22 15:32> Rhythm: regular rhythm <Mary Toro DIRECTOR OF DATABASE MARKETING - Last Filed: 10/06/22 15:32> Peripheral pulses: Peripheral pulses 2+ throughout <Mary Toro, DIRECTOR OF DATABASE MARKETING - Last Filed: 10/06/22 15:32> GI Inspection: Yes normal to inspection <Mary Toro DIRECTOR OF DATABASE MARKETING - Last Filed: 10/06/22 15:32> Palpation (GI): Soft to palpation and nontender <Mary Toro DIRECTOR OF DATABASE MARKETING - Last Filed: 10/06/22 15:32> Other: AJ senior games technician present <Mary Toro DIRECTOR OF DATABASE MARKETING - Last Filed: 10/06/22 15:32> General: Yes no CVA tenderness <Mary Toro DIRECTOR OF DATABASE MARKETING - Last Filed: 10/06/22 15:32> Speculum Exam - Vagina: normal appearance of the vagina <Mary Toro DIRECTOR OF DATABASE MARKETING - Last Filed: 10/06/22 15:32> Speculum Exam - Cervix: normal appearance of the cervix and nontender <Mary Toro DIRECTOR OF DATABASE MARKETING - Last Filed: 10/06/22 15:32> Bimanual exam- vagina & uterus: normal bimanual exam and No Cervical tenderness present <Mary Toro DIRECTOR OF DATABASE MARKETING - Last Filed: 10/06/22 15:32> Bimanual Exam- Adnexa, other: normal adnexae and no tenderness <Mary Toro DIRECTOR OF DATABASE MARKETING - Last Filed: 10/06/22 15:32> Back/Spine/Pelvis Back: no CVA tenderness <Mary Toro DIRECTOR OF DATABASE MARKETING - Last Filed: 10/06/22 15:32> Thoracic/Lumbar Spine: thoracic and lumbar spine normal to inspection <Mary Toro DIRECTOR OF DATABASE MARKETING - Last Filed: 10/06/22 15:32> Skin General skin exam: no rashes or lesions noted <Mary Toro NP - Last Filed: 10/06/22 15:32> Neuro General: patient oriented x3, moves all extremities and no meningeal signs <Mary Toro NP - Last Filed: 10/06/22 15:32> Cranial nerves: Yes Equal, round and reactive pupils present <Mary Toro NP - Last Filed: 10/06/22 15:32> Cognition (Neuro): normal cognition <Mary Toro NP - Last Filed: 10/06/22 15:32> Gait exam (Neuro): Normal gait present <Mary Toro NP - Last Filed: 10/06/22 15:32> Extrem General: Yes normal to inspection, Yes no pedal edema and Yes no calf tenderness <Mary Toro NP - Last Filed: 10/06/22 15:32> Course Course Course Narrative: 1210 32-year-old female presents to the emergency department with lower abdominal cramping, irregular vaginal bleeding x2 weeks. Patient reports bright red blood, patient is saturating through 2 pads an hour, patient tells me she has the Nexplanon in usually does not have her period. She tells me that she is feeling lightheaded and weak. Was told to come into the emergency department for evaluation by her provider. Physical exam benign. Plan basic labs, type and screen, Ob transvaginal ultrasound, hCG. <RONALD Mccann - Last Filed: 10/06/22 12:10> Reevaluation(s) Reevaluation #1: Labs are unremarkable. UA and pre beta quant are negative. Ultrasound shows no acute finding. Pelvic exam is normal. Likely dysfunctional uterine bleeding. Recommend patient follow-up with gynecology outpatient as she will need to establish a physician neonatology and have a Pap smear. Reviewed worrisome signs and symptoms of when to return to the emergency room. Comfortable plan for discharge home. <Mary Toro NP - Last Filed: 10/06/22 15:32> Medications Administered Discontinued Medications Generic Name Dose Route Start Last Admin Trade Name Freq PRN Reason Stop Dose Admin Sodium Chloride 1,000 mls @ 999 mls/hr 10/06/22 12:15 10/06/22 15:01 Ns IV 10/06/22 13:15 Not Given .Q1H1M JAY <RONALD Mccann - Last Filed: 10/06/22 12:10> Medications Administered Discontinued Medications Generic Name Dose Route Start Last Admin Trade Name Cristhianq PRN Reason Stop Dose Admin Sodium Chloride 1,000 mls @ 999 mls/hr 10/06/22 12:15 10/06/22 15:01 Ns IV 10/06/22 13:15 Not Given .Q1H1M JAY <Mary Toro NP - Last Filed: 10/06/22 15:32> Medical Decision Making Medical Decision Making [facility] Narrative: 32-year-old female here with 3 weeks of intermittent vaginal bleeding with abdominal cramping. On exam abdomen soft and nontender. Vitals are stable. Will obtain labs, UA, urine , pelvic ultrasound, pelvic exam <Mary Toro NP - Last Filed: 10/06/22 15:32> Differential Diagnosis Differential Diagnoses: The differential diagnosis associated with the presentation includes <Mary Toro NP - Last Filed: 10/06/22 15:32> Ectopic , dysmenorrhea, dysfunctional uterine bleeding, PID, UTI <Mary Toro NP - Last Filed: 10/06/22 15:32> Lab Data [facility] Lab Attestation statement: I reviewed the patient's lab results. <Mary Toro NP - Last Filed: 10/06/22 15:32> Result Diagrams: 10/06/22 12:24 10/06/22 12:24 <RONALD Mccann - Last Filed: 10/06/22 12:10> Labs: Lab Results 10/06/22 10/06/22 10/06/22 Range/Units 12:24 12:24 12:24 WBC 9.1 (4.8-10.8) X10*3/uL RBC 5.05 (4.20-5.50) X10*6/uL Hgb 13.5 (12.0-16.0) g/dl Hct 42.2 (37.0-47.0) % MCV 83.6 (80.0-98.0) fL MCH 26.7 L (27.0-33.0) pg MCHC 32.0 (31.0-35.0) g/dl RDW 13.2 (11.0-16.0) % Plt Count 342 (160-400) X10*3/uL MPV 9.0 L (9.4-12.3) fL Immature Gran % (Auto) 0.7 H (0.0-0.4) % Neut % (Auto) 59.1 (45-73) % Lymph % (Auto) 29.6 (20-40) % Mclennan % (Auto) 6.8 (2-11) % Eos % (Auto) 3.3 (0-4) % Baso % (Auto) 0.5 (0-2) % Lymph # (Auto) 2.7 (1.2-4.9) X10*3/uL Mclennan # (Auto) 0.6 (0.1-1.2) X10*3/uL Eos # (Auto) 0.3 (0.0-0.4) X10*3/uL Baso # (Auto) 0.1 (0.0-0.2) X10*3/uL Abs Immat Gran (auto) 0.06 H (0.00-0.03) X10*3/uL Absolute Neuts (auto) 5.4 (2.0-8.3) x10*3/uL Absolute Nucleated RBC 0.000 (0.0-0.012) X10*3/uL Nucleated RBC % (auto) 0.0 (0.0-0.2) /100WBC Sodium 141 (135-145) mmol/L Potassium 4.3 (3.3-5.1) mmol/L Chloride 110 H (96-108) mmol/L Carbon Dioxide 23 (22-29) mmol/L Anion Gap 12 (12-20) BUN 9 (9-16) mg/dL Creatinine 0.83 (0.5-1.4) mg/dL Estim Creat Clear Calc 89.1 Estimated GFR > 60 Random Glucose 109 (60-115) mg/dL Calcium 10.0 (8.4-10.2) mg/dL Magnesium 2.0 (1.6-2.6) mg/dL Total Bilirubin 0.5 (0.0-1.0) mg/dL AST 17 (5-31) U/L ALT 15 (0-31) U/L Alkaline Phosphatase 85 (39-117) U/L Total Protein 7.2 (6.5-8.0) g/dL Albumin 4.1 (3.5-5.0) g/dL Beta HCG, Quant < 2 mIU/mL COVID-19 (ROSALIE) Negative (Negative) COVID-19 Clin Com See Note Blood Type Antibody Screen 10/06/22 Range/Units 12:24 WBC (4.8-10.8) X10*3/uL RBC (4.20-5.50) X10*6/uL Hgb (12.0-16.0) g/dl Hct (37.0-47.0) % MCV (80.0-98.0) fL MCH (27.0-33.0) pg MCHC (31.0-35.0) g/dl RDW (11.0-16.0) % Plt Count (160-400) X10*3/uL MPV (9.4-12.3) fL Immature Gran % (Auto) (0.0-0.4) % Neut % (Auto) (45-73) % Lymph % (Auto) (20-40) % Mclennan % (Auto) (2-11) % Eos % (Auto) (0-4) % Baso % (Auto) (0-2) % Lymph # (Auto) (1.2-4.9) X10*3/uL Mclennan # (Auto) (0.1-1.2) X10*3/uL Eos # (Auto) (0.0-0.4) X10*3/uL Baso # (Auto) (0.0-0.2) X10*3/uL Abs Immat Gran (auto) (0.00-0.03) X10*3/uL Absolute Neuts (auto) (2.0-8.3) x10*3/uL Absolute Nucleated RBC (0.0-0.012) X10*3/uL Nucleated RBC % (auto) (0.0-0.2) /100WBC Sodium (135-145) mmol/L Potassium (3.3-5.1) mmol/L Chloride (96-108) mmol/L Carbon Dioxide (22-29) mmol/L Anion Gap (12-20) BUN (9-16) mg/dL Creatinine (0.5-1.4) mg/dL Estim Creat Clear Calc Estimated GFR Random Glucose (60-115) mg/dL Calcium (8.4-10.2) mg/dL Magnesium (1.6-2.6) mg/dL Total Bilirubin (0.0-1.0) mg/dL AST (5-31) U/L ALT (0-31) U/L Alkaline Phosphatase (39-117) U/L Total Protein (6.5-8.0) g/dL Albumin (3.5-5.0) g/dL Beta HCG, Quant mIU/mL COVID-19 (ROSALIE) (Negative) COVID-19 Clin Com Blood Type A Positive Antibody Screen NEGATIVE <RONALD Mccann - Last Filed: 10/06/22 12:10> Lab Results 10/06/22 10/06/22 10/06/22 Range/Units 12:24 12:24 12:24 WBC 9.1 (4.8-10.8) X10*3/uL RBC 5.05 (4.20-5.50) X10*6/uL Hgb 13.5 (12.0-16.0) g/dl Hct 42.2 (37.0-47.0) % MCV 83.6 (80.0-98.0) fL MCH 26.7 L (27.0-33.0) pg MCHC 32.0 (31.0-35.0) g/dl RDW 13.2 (11.0-16.0) % Plt Count 342 (160-400) X10*3/uL MPV 9.0 L (9.4-12.3) fL Immature Gran % (Auto) 0.7 H (0.0-0.4) % Neut % (Auto) 59.1 (45-73) % Lymph % (Auto) 29.6 (20-40) % Mclennan % (Auto) 6.8 (2-11) % Eos % (Auto) 3.3 (0-4) % Baso % (Auto) 0.5 (0-2) % Lymph # (Auto) 2.7 (1.2-4.9) X10*3/uL Mclennan # (Auto) 0.6 (0.1-1.2) X10*3/uL Eos # (Auto) 0.3 (0.0-0.4) X10*3/uL Baso # (Auto) 0.1 (0.0-0.2) X10*3/uL Abs Immat Gran (auto) 0.06 H (0.00-0.03) X10*3/uL Absolute Neuts (auto) 5.4 (2.0-8.3) x10*3/uL Absolute Nucleated RBC 0.000 (0.0-0.012) X10*3/uL Nucleated RBC % (auto) 0.0 (0.0-0.2) /100WBC Sodium 141 (135-145) mmol/L Potassium 4.3 (3.3-5.1) mmol/L Chloride 110 H (96-108) mmol/L Carbon Dioxide 23 (22-29) mmol/L Anion Gap 12 (12-20) BUN 9 (9-16) mg/dL Creatinine 0.83 (0.5-1.4) mg/dL Estim Creat Clear Calc 89.1 Estimated GFR > 60 Random Glucose 109 (60-115) mg/dL Calcium 10.0 (8.4-10.2) mg/dL Magnesium 2.0 (1.6-2.6) mg/dL Total Bilirubin 0.5 (0.0-1.0) mg/dL AST 17 (5-31) U/L ALT 15 (0-31) U/L Alkaline Phosphatase 85 (39-117) U/L Total Protein 7.2 (6.5-8.0) g/dL Albumin 4.1 (3.5-5.0) g/dL Beta HCG, Quant < 2 mIU/mL COVID-19 (ROSALIE) Negative (Negative) COVID-19 Clin Com See Note Blood Type Antibody Screen 10/06/22 Range/Units 12:24 WBC (4.8-10.8) X10*3/uL RBC (4.20-5.50) X10*6/uL Hgb (12.0-16.0) g/dl Hct (37.0-47.0) % MCV (80.0-98.0) fL MCH (27.0-33.0) pg MCHC (31.0-35.0) g/dl RDW (11.0-16.0) % Plt Count (160-400) X10*3/uL MPV (9.4-12.3) fL Immature Gran % (Auto) (0.0-0.4) % Neut % (Auto) (45-73) % Lymph % (Auto) (20-40) % Mclennan % (Auto) (2-11) % Eos % (Auto) (0-4) % Baso % (Auto) (0-2) % Lymph # (Auto) (1.2-4.9) X10*3/uL Mclennan # (Auto) (0.1-1.2) X10*3/uL Eos # (Auto) (0.0-0.4) X10*3/uL Baso # (Auto) (0.0-0.2) X10*3/uL Abs Immat Gran (auto) (0.00-0.03) X10*3/uL Absolute Neuts (auto) (2.0-8.3) x10*3/uL Absolute Nucleated RBC (0.0-0.012) X10*3/uL Nucleated RBC % (auto) (0.0-0.2) /100WBC Sodium (135-145) mmol/L Potassium (3.3-5.1) mmol/L Chloride (96-108) mmol/L Carbon Dioxide (22-29) mmol/L Anion Gap (12-20) BUN (9-16) mg/dL Creatinine (0.5-1.4) mg/dL Estim Creat Clear Calc Estimated GFR Random Glucose (60-115) mg/dL Calcium (8.4-10.2) mg/dL Magnesium (1.6-2.6) mg/dL Total Bilirubin (0.0-1.0) mg/dL AST (5-31) U/L ALT (0-31) U/L Alkaline Phosphatase (39-117) U/L Total Protein (6.5-8.0) g/dL Albumin (3.5-5.0) g/dL Beta HCG, Quant mIU/mL COVID-19 (ROSALIE) (Negative) COVID-19 Clin Com Blood Type A Positive Antibody Screen NEGATIVE <Mary Toro NP - Last Filed: 10/06/22 15:32> Independent Interpretation I performed an independent interpretation of an: Ultrasound <Mary Toro NP - Last Filed: 10/06/22 15:32> Interpretation: I independently reviewed the ultrasound and agree with radiologist's report <Mary Toro NP - Last Filed: 10/06/22 15:32> Radiology Impression Discussion of test interpretation with radiology: I have reviewed the radiologist's reading. <Mary Toro NP - Last Filed: 10/06/22 15:32> Discharge Plan Discharge Clinical Impression: DUB (dysfunctional uterine bleeding) <RONALD Mccann - Last Filed: 10/06/22 12:10> Patient Disposition: Home, Self-Care <RONALD Mccann - Last Filed: 10/06/22 12:10> Instructions: Dysfunctional Uterine Bleeding (ED) <RONALD Mccann - Last Filed: 10/06/22 12:10> Additional Instructions: Please refrain from sexual intercourse until your symptoms resolve. We had collected multiple vaginal swabs today for further testing, we will call you in several days if any of these test result are abnormal. Please follow up with your FOAM MACHINE OPERATOR regarding this visit. If any new or worsening symptoms occur, please return for further evaluation. Por favor, abst?ngase de tener relaciones sexuales hasta que pawan s?ntomas desaparezcan. Hemos recolectado m?ltiples hisopos vaginales hoy para realizar m?s pruebas, lo llamaremos en varios d?as si alguno de estos resultados de la prueba es anormal. Thi un seguimiento con edwards obstetra/ginec?logo con respecto a esta visita. Si se presentan s?ntomas nuevos o que empeoran, regrese para ravinder evaluaci?n adicional. <RONALD Mccann - Last Filed: 10/06/22 12:10> Prescriptions: No Action benzonatate [Tessalon Perles] 100 mg capsule 100 mg PO TID PRN (Reason: cough) Qty: 10 0RF ibuprofen 600 mg tablet 600 mg PO Q8H PRN (Reason: fever or pain) Qty: 20 0RF pantoprazole [Protonix] 40 mg tablet,delayed release (DR/EC) 40 mg PO DAILY Qty: 30 0RF sucralfate 1 gram tablet 1 g PO TID Qty: 90 0RF amlodipine 5 mg tablet 5 mg PO DAILY Qty: 30 3RF amoxicillin 250 mg/5 mL suspension for reconstitution 500 mg PO BID 10 Days Qty: 200 0RF lidocaine HCl [Lidocaine Viscous] 2 % solution 1 appl mucous membrane QID PRN (Reason: pain) Qty: 100 0RF Rx Instructions: Use 5 mL every 6 hours as needed for throat pain <RONALD Mccann - Last Filed: 10/06/22 12:10> Referrals: Vikcie Klein MD [Primary Care Provider] - 10 days Primitivo Barlow MD [Physician] - <RONALD Mccann - Last Filed: 10/06/22 12:10> Stand Alone Forms: Work/School Release <RONALD Mccann - Last Filed: 10/06/22 12:10> Interventions: ED Discharge Assessment Last Done: 10/06/22 15:08 <RONALD Mccann - Last Filed: 10/06/22 12:10> Discharge Date/Time: 10/06/22 15:09 <RONALD Mccann - Last Filed: 10/06/22 12:10> Print Language: Tajik <RONALD Mccann - Last Filed: 10/06/22 12:10>
[2022-10-06 12:32] LABS: Basophils Absolute Auto 0.1 X10*3/uL (0.0-0.2); Basophils Percent Auto 0.5 % (0-2); Eosinophils Absolute Auto 0.3 X10*3/uL (0.0-0.4); Eosinophils Percent Auto 3.3 % (0-4); Hematocrit 42.2 % (37.0-47.0); Hemoglobin 13.5 g/dl (12.0-16.0); Imm Gran Abs Auto 0.06 X10*3/uL (0.00-0.03); Imm Gran Pct Auto 0.7 % (0.0-0.4); Lymphocytes Absolute Auto 2.7 X10*3/uL (1.2-4.9); Lymphocytes Percent Auto 29.6 % (20-40); MANUAL DIFF FLAG NO; Mean Corpuscular Hemoglobin 26.7 pg (27.0-33.0); Mean Corpuscular Volume 83.6 fL (80.0-98.0); Monocytes Absolute Auto 0.6 X10*3/uL (0.1-1.2); Monocytes Percent Auto 6.8 % (2-11); Neutrophils Absolute Auto 5.4 x10*3/uL (2.0-8.3); Neutrophils Percent Auto 59.1 % (45-73); Platelet Count 342 X10*3/uL (160-400); Red Blood Count 5.05 X10*6/uL (4.20-5.50); Red Cell Distribution Width 13.2 % (11.0-16.0); White Blood Count 9.1 X10*3/uL (4.8-10.8)
[2022-10-06 12:48] LABS: COVID-19 Test Negative (Negative); IDNOW Serial# 08D9AD1C
[2022-10-06 13:19] LABS: Alanine Aminotransferase 15 U/L (0-31); Albumin Level 4.1 g/dL (3.5-5.0); Alkaline Phosphatase 85 U/L (39-117); Anion Gap 12 (12-20); Aspartate Amino Transferase 17 U/L (5-31); Bilirubin Total 0.5 mg/dL (0.0-1.0); Blood Urea Nitrogen 9 mg/dL (9-16); Carbon Dioxide 23 mmol/L (22-29); Chloride 110 mmol/L (96-108); Creatinine Clr Calc Pharmacy 89.1; Estimated Glomerular Filt Rate > 60; Glucose Random 109 mg/dL (60-115); Potassium 4.3 mmol/L (3.3-5.1); Sodium 141 mmol/L (135-145); Total Protein 7.2 g/dL (6.5-8.0)
[2022-10-06 13:33] LABS: HCG Quantitative < 2 mIU/mL
[2022-10-06 13:48] VITALS: BP 141/98; PULSE 71; RESP 13; TEMP 37.1; O2SAT 100
[2022-10-06 16:51] LABS: CT PCR NOT DETECTED (Not Detect.); NG PCR NOT DETECTED (Not Detect.)
[2022-10-07 12:18] LABS: BV Int Neg Control Negative (Negative); BV Int Pos Control Positive (Positive)
== END 2022-10-06 15:09 | disposition home or self-care (01) ==
PROVIDERS: Nurse Practitioner Family; Physician Assistant; Emergency Provider Emergency Medicine; PCP Family Medicine
DX: R42 Dizziness and giddiness (principal); N93.8 Other specified abnormal uterine and vaginal bleeding; R10.2 Pelvic and perineal pain; Z20.822 Contact with and (suspected) exposure to COVID-19; Z20.828 Contact with and (suspected) exposure to other viral communicable diseases; Z79.899 Other long term (current) drug therapy
CPT/HCPCS: 0353U; 76830; 76856; 80053; 83735; 84702; 85025; 86850; 86900; 86901; 87480; 87510; 87635; 87660; 93005; 99284

== ENCOUNTER 2024-06-01 15:35 | Outpatient (REF) | payer MEDICAID, SELFPAY ==
[2024-06-02 04:23] LABS: CT PCR NOT DETECTED (Not Detect.); NG PCR NOT DETECTED (Not Detect.)
== END 2024-06-01 15:36 | disposition home or self-care (01) ==
LOC: HO.CHCLNP 15:35
PROVIDERS: Visit Provider Family Medicine
DX: Z11.3 Encounter for screening for infections with a predominantly sexual mode of transmission (principal)
CPT/HCPCS: 87491; 87591